=== PATIENT | female | born 1990 | race Caucasian/White ===

== ENCOUNTER 2017-10-09 04:18 | Emergency (ER) | payer OTHER ==
[~2017-10-09] VITALS: Ht 162.6 cm; Wt 68.0 kg
[2017-10-09 04:20] VITALS: BP 120/77
--- NOTE | 2017-10-09 04:41 | NUR ---
27 Y/O FEMALE PLACED IN BED 1 C/O RIGHT EAR PAIN
--- NOTE | 2017-10-09 05:24 | NUR ---
DX - PHARYNGITIS. ACI GIVEN. PT DISCHARGED HOME TO FOLLOW UP WITH PMD.
== END 2017-10-09 05:30 | disposition home or self-care (01) ==
LOC: ER 04:18
DX: J02.9 Acute pharyngitis, unspecified (principal)
CPT/HCPCS: 99283; A4606; Z7610

== ENCOUNTER 2019-12-23 11:08 | Emergency (ER) | payer OTHER ==
[~2019-12-23] VITALS: Ht 162.6 cm; Wt 72.6 kg
[2019-12-23 11:17] VITALS: BP 137/78
--- NOTE | 2019-12-23 11:56 | NUR ---
SEEN AND EXAMINED BY .
--- NOTE | 2019-12-23 12:06 | NUR ---
Patient discharged to home in stable condition. Written and verbal after care instructions given. Patient verbalizes understanding of instruction.
== END 2019-12-23 12:08 | disposition home or self-care (01) ==
LOC: ER 11:08
DX: B30.9 Viral conjunctivitis, unspecified (principal)